=== PATIENT | female | born 1990 | race Caucasian/White ===

== ENCOUNTER 2021-10-16 08:23 | Day surgery (SDC) | payer OTHER ==
[~2021-10-16] VITALS: Ht 172.7 cm; Wt 114.0 kg
--- NOTE | ~2021-10-16 | OR ---
[facility] [address], [place] [address] Draft DATE OF OPERATION: 10/16/2021 SURGEON: Viola Alvarado MD PREOPERATIVE DIAGNOSIS: Metrorrhagia endometrial polyp. POSTOPERATIVE DIAGNOSIS: Metrorrhagia endometrial polyp. PROCEDURE: Hysteroscopy resection of polyps. ANESTHESIA: MAC. ESTIMATED BLOOD LOSS: Minimal. DRAINS: None. INDICATIONS AND FINDINGS: The patient is a 30-year-old female, 2, para 2, who is using bilateral tubal ligation for control and Depo for control of bleeding, who has been having abnormal bleeding, which has been persistent. Ultrasound in the office revealed endometrial polyps. At the time of surgery, exam under anesthesia revealed a normal-size uterus. The cavity sounded to 10 cm. There are multiple polyps on the posterior lower aspect of the fundus as well as the left anterolateral fundus. DESCRIPTION OF PROCEDURE: The patient was prepped and draped in the dorsal lithotomy position. A weighted speculum was placed. The anterior lip of the cervix was visualized and grasped with a single-tooth tenaculum. The cavity sounded to 10 cm. The endocervical canal was then dilated to a #8 dilator. The MyoSure device was placed and the cavity evaluated. The upper portion of the fundus was completely atrophic as expected. Because of the polyps, the MyoSure Lite was introduced. The polyps over the posterior lower aspect of the fundus were all resected. The polyps at the left lateral fundus were also resected. Following this, the instruments removed from the vagina as well as the tenaculum. There was some bleeding from the ectropion of the cervix. This did not respond to pressure PATIENT NAME: KIM PAGAN OPERATIVE REPORT DATE OF : [birth year] REPORT #: [id number] PHYSICIAN: VIOLA ALVARADO MD PCP: NO PRIMARY CARE PHYSICIAN REPORT IS CONFIDENTIAL AND NOT TO BE RELEASED WITHOUT AUTHORIZATION [facility] [address], [place] [address] Draft and Monsel's solution was placed on a Scopette and placed over the surface of the cervix and good hemostasis was thus rendered. The vagina was rinsed out with some saline to prevent any irritation. The procedure was then terminated. The patient was taken to recovery room in good condition. All sponge and needle counts were correct. Viola Alvarado MD PJMandie/MODEzra /[id number] Copies: ~ PATIENT NAME: KIM PAGAN OPERATIVE REPORT DATE OF : [birth year] REPORT #: [id number] PHYSICIAN: VIOLA ALVARADO MD PCP: NO PRIMARY CARE PHYSICIAN REPORT IS CONFIDENTIAL AND NOT TO BE RELEASED WITHOUT AUTHORIZATION
[~2021-10-16 08:23] MED LIST: DEPO-SUBQ104 MG/0.6 SUB-Q; HAIR VITAMIN1 EACH PO; LEVOTHYROXINE200 MC2 PO; LEVOXYL200 MCG PO; MECLIZINE HCL25 MG PO
[2021-10-16] MEDS ORDERED: LEVOTHYROXINE25 MC1 PO (08:45)
[2021-10-16] MEDS ORDERED: CYCLOBENZAPRINE10 MG PO (08:46)
--- NOTE | 2021-10-16 10:49 | NUR ---
10/16/21 Carito9 Meka Ruth 1044 PATIENT ARRIVES TO PACU UNRESPONSIVE TO VERBAL STIMULI. ORAL AIRWAY IN PLACE. RESP EVEN AND UNLABORED, MASK AT 6 LITERS.
--- NOTE | 2021-10-17 15:16 | PATH ---
[facility] [address], [place] [address] Signed SPECIMEN(S): A ENDOMETRIAL POLYP SPECIMEN SOURCE: A. ENDOMETRIAL POLYP CLINICAL HISTORY: Hysteroscopy DC. FINAL PATHOLOGIC DIAGNOSIS: Designated "endometrial polyp": - Secretory phase endometrium; no hyperplasia or neoplasia identified. - Fragments of smooth muscle suggestive of leiomyoma. BRP:cml:C2NR MICROSCOPIC EXAMINATION: Histologic sections of all submitted blocks are examined by light microscopy. These findings, together with the gross examination, support the pathologic diagnosis. GROSS DESCRIPTION: The specimen, labeled "JM, A," and designated on the requisition "endometrial polyp," is received in formalin and consists of multiple fragments of pink-cat to hemorrhagic soft tissue (2.5 x 2.3 x 0.3 cm in aggregate). The specimen is submitted entirely in cassette (A1). AC (under the direct supervision of a pathologist) The Gross Description was prepared using a voice recognition system. The report was reviewed for accuracy; however, sound-alike word errors, addition and/or deletions may occur. If there is any question about this report, please contact Client Services. PERFORMING LABORATORY: The technical component was performed by [facility], [address] [place] [id number] (Bicycle Repairman: Maria Del Carmen Hargrove MD; CLIA# [id number]).Professional interpretation was performed by [facility], [address] [address] (CLIA# [id number]). Diagnostician: Kings Hewitt MD Pathologist Electronically Signed 10/17/2021 PATIENT NAME: KIM PAGAN PATHOLOGY DATE OF : [birth year] REPORT #: [id number] PHYSICIAN: DEYA PATHOLOGY PCP: NO PRIMARY CARE PHYSICIAN REPORT IS CONFIDENTIAL AND NOT TO BE RELEASED WITHOUT AUTHORIZATION [address] [address] Signed Copies: ~ PATIENT NAME: KIM PAGAN PATHOLOGY DATE OF : [birth year] REPORT #: [id number] PHYSICIAN: DEYA PATHOLOGY PCP: NO PRIMARY CARE PHYSICIAN REPORT IS CONFIDENTIAL AND NOT TO BE RELEASED WITHOUT AUTHORIZATION
== END 2021-10-16 11:45 | disposition home or self-care (01) ==
LOC: DS 08:23
PROVIDERS: ATTEND Obstetrics & Gynecology
PROC: 0UB98ZX Excision of Uterus, Via Natural or Artificial Opening Endoscopic, Diagnostic (ICD-10-PCS; principal; 2021-10-16 10:00)
DX: N84.0 Polyp of corpus uteri (principal); N92.1 Excessive and frequent menstruation with irregular cycle; Z88.2 Allergy status to sulfonamides
CPT/HCPCS: J0131; J1885; J2001; J2405; J2704; J2765; J3010; J7121